=== PATIENT | female | born 1955 | race Two or more races ===

== ENCOUNTER 2018-09-17 10:05 | Outpatient (CLI) | payer OTHER ==
[2018-09-17] MEDS ORDERED: ATIVAN2 M1 PO (14:57)
[2018-09-17] MEDS ORDERED: LIPITOR20 MG PO (14:57)
[2018-09-17] MEDS ORDERED: PROZAC40 MG PO (14:57)
[2018-09-17] MEDS ORDERED: AVAPRO300 MG PO (14:57)
[2018-09-17] MEDS ORDERED: ESTAZOLAM2 MG PO (14:58)
[2018-09-17] MEDS ORDERED: GABAPENTIN800 MG PO (14:58)
== END 2018-09-17 10:12 | disposition home or self-care (01) ==
LOC: RAD 501 10:05
DX: R07.89 Other chest pain (principal)

== ENCOUNTER 2018-09-17 12:30 | Inpatient (IN) | payer OTHER ==
[~2018-09-17] VITALS: Ht 170.2 cm; Wt 145.1 kg
[2018-09-17] MEDS ORDERED: PROZAC40 MG PO (14:57)
[2018-09-17] MEDS ORDERED: AVAPRO300 MG PO (14:57)
[2018-09-17] MEDS ORDERED: LIPITOR20 MG PO (14:57)
[2018-09-17] MEDS ORDERED: ATIVAN2 M1 PO (14:57)
[2018-09-17] MEDS ORDERED: GABAPENTIN800 MG PO (14:58)
[2018-09-17] MEDS ORDERED: ESTAZOLAM2 MG PO (14:58)
== END 2018-09-25 18:12 | DRG 470 ==
LOC: EDUNIT# 12:30 → SURH 09-23 06:10 → O/R 09-23 06:10 → SURG-SUITE 09-23 07:00 → SURH 09-23 10:50 → SURG-SUITE 09-23 12:30 → SURH 09-25 18:12
PROVIDERS: ADMIT Orthopaedic Surgery
PROC: 0SRC0J9 Replacement of Right Knee Joint with Synthetic Substitute, Cemented, Open Approach (ICD-10-PCS; principal; 2018-09-23 07:00)
DX: M17.11 Unilateral primary osteoarthritis, right knee (principal); D62 Acute posthemorrhagic anemia; I10 Essential (primary) hypertension; G47.33 Obstructive sleep apnea (adult) (pediatric); E66.01 Morbid (severe) obesity due to excess calories